=== PATIENT | male | born 1935 | race Caucasian/White ===

== ENCOUNTER 2016-10-25 13:51 | Day surgery (SDC) | payer MEDICARE ==
[~2016-10-25] VITALS: Ht 175.3 cm; Wt 95.2 kg
[~2016-10-25 13:51] MED LIST: ALFU10TA11 PO; DABI75CA3 PO; FINA5TAB9 PO; LISI1TAB7 PO; Lactated Ringer's 1,000 ML IV ONE; TAMS0.4C98 PO; VARD20TA30 PO; VIT1CAPS27 PO
[2016-10-25] MEDS ORDERED: Ketamine 10 mg/mL 20 mL Inj ONE (13:52)
[2016-10-25] MEDS ORDERED: Propofol 10,000 mCg/mL 20 mL Inj ONE (13:52)
[2016-10-25 14:05] VITALS: BP 141/87; PULSE 91; RESP 14; O2SAT 95
--- NOTE | 2016-10-25 14:34 | PCM.HPANE ---
Patient Data Date of Service: Oct 25, 2016 Surgeon Admitting Provider: Attending Provider:Desirae Mcneill MD Primary Care Physician:Dutch Cisneros MD Other Provider:Bonifacio Eckert Anesthesia Reason for Visit Colon Cancer Screening Ht/WT & BMI Height (Feet): 5 Height (Inches): 9 Weight (Kilograms): 95.25 Body Mass Index 31.00 Allergies Coded Allergies: No Known Allergies (Unverified , 10/24/16) Past Anesthesia History Anesthesia History: Denies:: Abnormal Airway, Anesthesia Reactions, Difficult Intubation, Fam Anesthesia Reaction, Fam Malignant Hypertherm, Malignant Hyperthermia Diabetes History Hx Diabetes?: No MRSA MRSA: No Medications Blood Thinner: Pradaxa Last Dose Blood Thinner: Oct 23, 2016 Hypertension Medication: Yes Home Meds Incl Beta Yovany: No Reported Medications Vit C/Shazia AC/Lut/Copper/Znox (Preservision Lutein Softgel)1 Each Capsule1 Each PO 10/24/16 Dabigatran Etexilate Mesylate (Pradaxa)75 Mg Vrjliyn57 Mg PO BID 30 Days 10/24/16 Lisinopril / HCTZ 10-12.5 mg 1 Each Tablet1 Each PO DAILY Ref 0 10/24/16 Vardenafil (Levitra)20 Mg Azosce04 Mg PO 10/24/16 Finasteride 5 Mg Tablet5 Mg PO DAILY 30 Days Ref 0 10/24/16 Alfuzosin ER 10 Mg Tab.er.24h10 Mg PO DAILY 10/24/16 Discontinued Reported Medications Tamsulosin (Flomax)0.4 Mg Capsule0.4 Mg PO DAILY Ref 0 10/24/16 History HEENT History: Positive for:: 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) Denies:: Abnormal Airway Difficult Intubation Dysphagia Hx of Heart Problems?: Yes Cardiovascular History: Positive for:: Atrial Fibrillation Hypertension Denies:: AICD Chest Pain Pacemaker Valvular Heart Disease Hx of Respiratory Problem?: No Respiratory History: Denies:: Tuberculosis Neurological History: Denies:: CVA Hx of GI Problems?: Yes Gastrointestinal History: Positive for:: Rectal Bleeding (R/T HEMORRHOIDS) Denies:: Cirrhosis Diverticulitis Gall Bladder Disease Gastroesphageal Reflux Hiatal Hernia Liver Disease Musculoskeletal History: Denies:: Fibromyalgia Joint Replacement Psycho Social History: Denies:: Anxiety Hx Depression Hx Surgeries?: Yes (L EYE, HEMORROIDECTOMY) Hx Any Other Health Problems?: Yes Hx Diabetes: No Hx Alcohol Use: Yes Stop/Bang Treated for Sleep Apnea?: Yes Do You Have a CPAP Machine?: Yes (LOST WT) S-Snoring: Do You Snore Loudly: Yes T-Tired: feel tired, fatigued: No O-Obsered: Observed not breath: No P-Blood Pressure: treated: Yes B- Body Mass Index > 35 kg/m2: No A- Age over 50: Yes N- Neck Large Circumference: No G- Gender Male: Yes SAMIRA Total Score: 4 SAMIRA Category 4 OutPt Procedure: Yes Risk Assessment Category Category 1A: Patient has history of documented sleep apnea, and HAS NOT received any narcotic, sedative or anesthesia administration during this stay. Category 1B: Patient has history of documented sleep apnea, and HAS received any narcotic , sedative or anesthesia administration during this stay Category 2: Patient has SUSPECTED Obstructive Sleep Apnea, and HAS received any narcotic , sedative or anesthesia administration during this stay. Category 3: Patient has SUSPECTED Obstructive Sleep Apnea and HAS NOT received narcotic, sedative or anesthesia administration during this stay. Category 4: Outpatient in Procedural Areas with known sleep apnea or who screen positive for High Risk via the STOP/BANG questionnaire. Exam Exam Vital Signs Vital Signs Date Time Temp Pulse Resp B/P Pulse Ox O2 Delivery O2 Flow Rate FiO2 10/25/16 14:05 36.1 91 14 141/87 95 Room Air General Appearance: Alert, Oriented X3, Cooperative, No Acute Distress HEENT/AIRWAY: MP 2 Lungs: Clear to Auscultation, Normal Air Movement Heart: No Murmurs/Rubs/Gallops, Other (irregular) Plan Impression Patient chart reviewed, patient interviewed and anesthestic plan with risks, benefits, and alternatives discussed, and informed consent obtained. NPO Status: >8h ASA Physical Status: ASA2 Mod Systemic Disease Anesthetic Plan: MAC Bene/Risks/Altern/Consents: Yes HP Complete Prior to Induction: Yes Ibrahima De Oliveira MD Oct 25, 2016 14:33
[2016-10-25] MEDS ORDERED: Ondansetron 2 mg/mL 2 mL Inj IVPUSH PRN (14:35)
[2016-10-25] MEDS ORDERED: Atropine 0.4 mg/mL Inj IVPUSH PRN (14:35)
[2016-10-25] MEDS ORDERED: Lactated Ringer's 500 ML IV PRN (14:35)
[2016-10-25] MEDS ORDERED: Lactated Ringer's 1,000 ML IV SCH (14:35)
[2016-10-25] MEDS ORDERED: MetoCLOpramide 5 mg/mL 2 mL Inj IVPUSH PRN (14:35)
[2016-10-25 15:20] VITALS: BP 85/54; PULSE 88; RESP 14; O2SAT 96
--- NOTE | 2016-10-25 15:27 | PCM.ANEP1 ---
Post Anesthesia Phase 1 PACU Phase 1 Assessment Date of Service: Oct 25, 2016 Vital Signs Vital Signs Date Time Temp Pulse Resp B/P Pulse Ox O2 Delivery O2 Flow Rate FiO2 10/25/16 15:20 88 14 85/54 96 Room Air 10/25/16 14:05 36.1 91 14 141/87 95 Room Air Anesthetic Administered: MAC Level of Alertness: Sleepy, easy to arouse LOREDO's with Equal Strength: Yes Pain: No Nausea or Vomiting: No Lungs: Clear to Auscultation, Normal Air Movement Summary Giving fluid for low BP; patient feeling okay Ibrahima De Oliveira MD Oct 25, 2016 15:27
[2016-10-25 15:28] VITALS: BP 107/69; PULSE 83; RESP 14; O2SAT 94
--- NOTE | 2016-10-25 15:28 | PCM.ANEP2 ---
Post Anesthesia Evaluation ASA/CMS Post Anesthesia Date of Service: Oct 25, 2016 VS in Patient's Normal Range?: Yes Resp Stable; Airway Patent?: Yes CV Function & Hydration Stable: Yes Mental Status Recovered?: Yes Pain control Satisfactory?: Yes N/V Control Satisfactory?: Yes Ibrahima De Oliveira MD Oct 25, 2016 15:28
[2016-10-25 15:32] VITALS: BP 107/65; PULSE 90; RESP 15; O2SAT 94
--- NOTE | 2016-10-26 02:32 | ENDO ---
[address] [address] ENDOSCOPY PROCEDURE PATIENT: ISAI ENRIQUEZ : 1935 MR#: [id number] ADMIT: 10/25/2016 JOB ID: [id number] DATE OF PROCEDURE: 10/25/2016 PREPROCEDURAL DIAGNOSIS: Colon cancer screening. POSTPROCEDURAL DIAGNOSIS: Colon cancer screening. PROCEDURE PERFORMED: Colonoscopy with biopsy. SURGEON: Desirae Mcneill MD. HISTORY OF PRESENT ILLNESS: This is an 81-year-old man who has a history of colon polyps on previous colonoscopy. He is very robust and golfs frequently. He presented for consideration of screening colonoscopy. Because he has a good functional status and the potential for many more years of lies, along with a history of polyps, colonoscopy was recommended. FINDINGS: Normal colonoscopy with the exception of a single polyp in the cecum, removed with cold biopsy forceps. INSTRUMENT: Olympus [id number]. ANESTHESIA: MAC. PREP: Good. WITHDRAWAL TIME: 12 minutes. DESCRIPTION OF PROCEDURE: The patient was brought to the endoscopy suite and placed in left lateral decubitus position. Moderate anesthesia was induced. The perianal region was examined and contained external hemorrhoidal skin tags. The colonoscope was advanced to the cecum and into the terminal ileum. 3 cm of terminal ileum was visualized and was normal. The appendiceal orifice and ileocecal valve were easily visualized. There was a 5 mm polyp in the cecum which was removed with cold biopsy forceps. The colonoscope was slowly withdrawn over the course of 12 minutes. There were no additional strictures or masses. There was pandiverticulosis, most prominent in the sigmoid. Retroflexed examination of the rectum revealed normal hemorrhoidal vessels. The colonoscope was withdrawn. The patient tolerated the procedure well. ESTIMATED BLOOD LOSS: None. SPECIMENS: Cecal polyp. COMPLICATIONS: None.
--- NOTE | 2016-10-29 14:20 | PATH ---
SURGICAL PATHOLOGY Attending Physician:Desirae Mcneill MD CASE STATUS: Signed Out PATIENT NAME: ISAI ENRIQUEZ PID: [id number] : 1935 DATE COLLECTED:10/25/2016 00:00 SPECIMEN: Colon, Biopsy CLINICAL HISTORY: 1). 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 10/26/2016 DAC MICRO DESCRIPTION: See diagnosis. ICD-9 CODES: CPT CODES: 1: 63934 Electronically Signed Out Gracie Barajas MD [facility] Pathology [facility], [place] [address] Technical component performed at [facility], [address] [place] [address] Ave[address], [place], [address]
== END 2016-10-25 23:59 | disposition home or self-care (01) ==
LOC: END 13:51
PROVIDERS: ATTEND Surgery
DX: Z12.11 Encounter for screening for malignant neoplasm of colon (principal); Z86.010 Personal history of colon polyps; D12.0 Benign neoplasm of cecum; I10 Essential (primary) hypertension; I48.91 Unspecified atrial fibrillation; G47.33 Obstructive sleep apnea (adult) (pediatric); Z79.02 Long term (current) use of antithrombotics/antiplatelets; Z87.891 Personal history of nicotine dependence
CPT/HCPCS: 45380; J7120